=== PATIENT | male | born 1955 | race Caucasian/White ===

== ENCOUNTER 2018-09-27 05:56 | Outpatient (CLI) | payer OTHER ==
[~2018-09-27] VITALS: Ht 180.3 cm; Wt 88.6 kg
--- NOTE | ~2018-09-27 | HEMODYNAMI ---
PATIENT:MILAGRO SCHUMACHER MEDICAL RECORD: [id number] : 57 LOCATION:[facility] ADMISSION DATE: 09/27/18 Generatedon:09/27/20188:34 Patient name: MILAGRO SCHUMACHER Patient #: [id number] SSN: : 1955 Date of study: 09/27/2018 Page: Of Hemodynamic Procedure Report Patient Data Patient Demographics Procedure consent was obtained First Name: MILAGRO Gender: Male Last Name: ENDY : 1955 [facility] Initial: UMESH Age: 63 year(s) Patient #: [id number] Race: Additional ID: [id number] Contact details [address]: [address] [place] [address] State: [place] City: [place] Zip code: [address] Past Medical History Allergies: No known allergies Admission Admission Data Admission Date: 09/27/2018 Admission Time: 5:56 Admit Source: Other Height (in.): 69 BSA: 2.09 (m2) Height (cm.): 175.26 BMI: 30.27 (kg/m2) Weight (lbs.): 205 Weight (kg.): 92.99 Lab Results Lab Result Date: 09/27/2018 Lab Result Time: 0:00 Biochemistry Name Units Result Min Max BUN mg/dl 19 --(----)*- 7 18 Creatinine mg/dl 1.2 --(---*)-- 0.6 1.3 CBC Name Units Result Min Max Hemoglobin g/dl 15.9 --(--*-)-- 13.5 17.5 Procedure Procedure Types Cath Procedure Diagnostic Procedure LHC LHC w/Coronaries w/Grafts Sedation Charges Moderate Sedation up to 15 minutes Procedure Description Procedure Date Procedure Date: 09/27/2018 Procedure Start Time: 8:14 Procedure End Time: 8:29 Procedure Staff Name Function Levi Collado MD Performing Physician Pee Stauffer RT Monitor Ken Danielle RT Scrub Ann Don RN Nurse Procedure Data Cath Procedure Fluoroscopy Diagnostic fluoroscopy Total fluoroscopy Time: 2.7 time: 2.7 min min Diagnostic fluoroscopy Total fluoroscopy dose: 487 dose: 487 mGy mGy Contrast Material Contrast Material Type Amount (ml) Isovue 300 86 Entry Location Entry Primary Successful Side Size Upsize Upsize Entry Closure Succes sful Closure Location (Fr) 1 (Fr) 2 (Fr) Remarks Device Remarks Femoral Right 5 Fr Exoseal artery Estimated blood loss: 5 ml Diagnostic catheters Device Type Used For End Catheter Placement MULTIPACK JL 4.0 5Fr Procedure catheter DIAGNOSTIC IM 5Fr Procedure catheter ([id number]) DIAGNOSTIC AR MOD 5Fr Procedure Catheter ([id number]) MULTIPACK Pigtail 5 Fr Procedure catheter Procedure Complications No complications Procedure Medications Medication Administration Route Dosage Oxygen etCO2 Nasal cannula 2 l/min Heparin Flush Bag added to field 2 bags (1000units/500ml NS) Versed I.V. 2 mg Fentanyl I.V. 100 mcg Versed I.V. 1 mg Fentanyl I.V. 50 mcg Versed I.V. 1 mg Fentanyl I.V. 50 mcg Hemodynamics Rest BSA: 2.09 (m2) HGB: 15.9 (g/dl) O2 Consumption: Estimated: 239.88 (ml/min) O2 Co nsumption indexed: Estimated:114.78 (ml/min/m) Heart Rate: 64 (bpm) Pressure Samples Time Site Value (mmHg) Purpose Heart Use Rate(bpm) 8:25 LV 139/2,20 Snapshot 79 8:26 AO 146/85(113) Pullback 82 8:26 LV 152/17,38 Pullback 82 Gradients Valve Time Site 1 Site 2 Mean SEP/DFP Peak To Heart Use (mmHg) (sec/min) Peak Rate (mmHg) (bpm) Aortic 8:26 LV AO 3 20 6 82 152/17,38 146/85(113) Calculations Valve P-P Mean Valve Index Valve Source Name Gradient Area Flow (cm2) Aortic 6 3 6 3 Snapshots Pre Cath Intra NCS Post Cath Vital Signs Time Heart Resp SPO2 etCO2 NIBP (mmHg) Rhythm Pain Sedation Rate (ipm) (%) (mmHg) Status Level (bpm) 8:03:27 66 17 99 0 168/93(131) NSR 0 (11) 10(A) , No pain 8:07:55 71 19 96 28.8 162/99(144) NSR 0 (11) 10(A) , No pain 8:12:11 71 18 99 0 148/90(130) NSR 0 (11) 10(A) , No pain 8:18:34 80 15 97 10.6 Time NSR 0 (11) 9(A) Exceeded , No pain 8:20:41 82 14 93 37.9 158/100(138) NSR 0 (11) 9(A) , No pain 8:24:55 79 15 97 9.1 147/91(122) NSR 0 (11) 9(A) , No pain 8:29:09 83 15 98 0 149/108(129) NSR 0 (11) 10(A) , No pain Medications Time Medication Route Dose Verified Delivered Reason Notes Effec tiveness by by 8:04:36 Oxygen etCO2 2 Levi Buffie used for Nasal l/min Tobias Don RN procedure cannula 8:04:54 Heparin Flush added 2 Levi Levi used for Bag to bags Tobias Collado MD procedure (1000units/500ml field NS) 8:06:29 Versed I.V. 2 mg Levi Buffie for Tobias Don RN sedation 8:06:35 Fentanyl I.V. 100 Levi Buffie for mcg Tobias Don RN sedation 8:12:36 Versed I.V. 1 mg Levi Buffie for Tobias Don RN sedation 8:12:41 Fentanyl I.V. 50 Levi Buffie for mcg Tobias Don RN sedation 8:25:49 Versed I.V. 1 mg Levi Buffie for Tobias Don RN sedation 8:25:54 Fentanyl I.V. 50 Levi Buffie for mcg Tobias Don RN sedation Procedure Log Time Note 7:41:18 Informed consent obtained and on chart 7:41:22 Admit Source: Other 7:42:22 Diagnostic Cath status Elective 7:42:49 Ken REYNOSO(R) sent for patient. Start room use. 7:46:18 Patient received from Pre/Post Procedure Room to CCL 1 Alert and oriented. Tansferred to table in Supine position. 7:46:19 Warm blankets applied, and bridger hugger turned on for patient comfort. 7:46:22 Correct patient and procedure confirmed by team. 7:46:23 ECG and BP/O2 sat monitors applied to patient. 7:47:34 H&P Date Dictated: 09/24/2018 Within 30 days and on chart., H&P Addendum completed by physician on day of procedure. (MUST COMPLETE FOR ALL OUTPATIENTS). 7:52:25 Pre-procedure instructions explained to patient. 7:52:26 Pre-op teaching completed and patient verbalized understanding. 7:52:29 Family in waiting room. 7:52:31 Patient NPO since Midnight. 7:52:36 Patient allergic to No allergy information 7:52:51 Patient allergic to No known allergies 7:53:02 Is patient on blood thinner?No 7:53:05 Patient diabetic? No. 7:53:08 Snore? Yes 7:53:09 Sleep apnea? No 7:53:11 Deviated septum? Yes 7:53:18 Opens mouth fully? Yes 7:53:19 Sticks out tongue? Yes 7:53:21 Airway obstruction? No ? 7:53:23 Dentures? No ? 7:53:31 Pre procedure: right dorsailis pedis pulse 2+ Normal; easily identifiable; not easily obliterated 7:54:39 IV patent on arrival in left antecubital with 0.9% NaCl at KVO. 7:55:06 Lab Result : BUN 19 mg/dl 7:55:06 Lab Result : Hemoglobin 15.9 g/dl 7:55:06 Lab Result : Creatinine 1.2 mg/dl 7:55:18 Lab results completed and on chart. 7:55:22 Right groin area was prepped with chlora-prep and draped in sterile fashion 7:55:23 Alarms reviewed by R. N. 7:55:23 Sharps counted by scrub and verified by R.N. 7:55:30 Use device set Femoral Dx 7:55:32 ACIST Syringe (61636) opened to sterile field. 7:55:45 Bag Decanter () opened to sterile field. 7:55:46 ACIST Hand Control (17864) opened to sterile field. 7:55:47 ACIST Manifold (84341) opened to sterile field. 7:55:48 Tegaderm 4 x 4 (1626W) opened to sterile field. 7:55:50 Medline Cath Pack ([id number]) opened to sterile field. 7:55:51 DIAGNOSTIC WIRE .035 260cm J wire (070937) opened to sterile field. 7:55:52 DIAGNOSTIC Multipack 5Fr catheter set ([id number]) opened to sterile field. 7:55:53 SHEATH 5FR Woodland ([id number]) opened to sterile field. 7:56:31 Patient Height : 69 inches 7:56:34 Patient Weight : 205 lbs 7:58:40 --------ALL STOP TIME OUT------ 7:58:41 Final Timeout: patient, procedure, and site verified with staff and physician. All members of the team are in agreement. 7:58:43 Right groin site verified by team. 7:58:51 Physical assessment completed. ASA score P 2 - A patient with mild systemic disease as per Levi Collado MD. 7:58:57 Sedation plan: IV Moderate Sedation Medication:Versed, Fentanyl 8:02:13 Vital chart was started 8:02:14 Baseline sample Acquired. 8:02:17 Rhythm: sinus rhythm 8:02:18 Full Disclosure recording started 8:04:36 Oxygen 2 l/min etCO2 Nasal cannula was administered by Ann Don RN; used for procedure; 8:04:54 Heparin Flush Bag (1000units/500ml NS) 2 bags added to field was administered by Levi Collado MD; used for procedure; 8:06:29 Versed 2 mg I.V. was administered by Ann Don RN; for sedation; 8:06:35 Fentanyl 100 mcg I.V. was administered by Ann Don RN; for sedation; 8:09:04 Zero performed for pressure channel P1 8:12:36 Versed 1 mg I.V. was administered by Ann Don RN; for sedation; 8:12:41 Fentanyl 50 mcg I.V. was administered by Ann Don RN; for sedation; 8:14:37 Procedure started. 8:14:40 Local anesthetic to right femoral artery with Lidocaine 2% by Levi Collado MD.INITIAL ACCESS ONLY 8:16:30 A 5 Fr sheath was inserted into the Right Femoral artery 8:17:02 A MULTIPACK JL 4.0 5Fr catheter was advanced over the wire and used for Procedure. 8:18:18 LCA angiography performed. 8:19:16 Catheter exchanged over wire. 8:19:20 A DIAGNOSTIC IM 5Fr catheter ([id number]) was advanced over the wire and used for Procedure. 8:20:19 HERRERA to LAD angiography performed. 8:22:00 Catheter exchanged over wire. 8:22:08 A DIAGNOSTIC AR MOD 5Fr Catheter ([id number]) was advanced over the wire and used for Procedure. 8:23:08 RCA angiography performed. 8:24:00 SVG to Diag occluded. 8:24:02 SVG to Circ occluded. 8:24:36 Catheter exchanged over wire. 8:24:56 A MULTIPACK Pigtail 5 Fr catheter was advanced over the wire and used for Procedure. 8:25:46 LV gram done using SYLVESTER 8::49 Versed 1 mg I.V. was administered by Ann Don RN; for sedation; 8::49 Injector settings: Ml/sec: 10, Volume: 20, 8:25:50 LV hemodynamics recorded. 8:25:54 Fentanyl 50 mcg I.V. was administered by Ann Don RN; for sedation; 8:25:59 EF : 55 % 8:27:09 Catheter removed. 8:27:10 EXOSEAL 5Fr (EX500) opened to sterile field. 8:27:25 Sheath removed intact; hemostasis achieved with Exoseal to the Right Femoral artery. 8:27:28 Procedure ended.(Physican Out) 8:27:37 Fluoroscopy time 02.70 minutes. 8:27:40 Fluoroscopy dose: 487 mGy 8:27:40 Flurop Dose total: 487 8:27:43 Contrast amount:Isovue 300 86ml. 8:27:45 Sharps counted by scrub and verified by R.N. 8:27:45 Insertion/operative site no bleeding no hematoma. 8:27:48 Post-op/insertion site Right Femoral artery dressed using a 4 x 4 and Tegaderm. 8:27:51 Post right femoral artery:stable, soft, clean and dry 8:27:53 Post Procedure Pulses reassessed and unchanged 8:28:03 Post-procedure physical assessment completed. ASA score P 2 - A patient with mild systemic disease as per Levi Collado MD. 8:28:06 Post procedure rhythm: unchanged. 8:28:09 Estimated blood loss: 5 ml 8:28:11 Post procedure instruction explained to patient.Patient verbalizes understanding. 8:28:11 Patient needs reinforcement of post procedure teaching. 8:28:31 Procedure type changed to Cath procedure, Diagnostic procedure, LHC, LHC w/Coronaries w/Grafts, Sedation Charges, Moderate Sedation up to 15 minutes 8:28:50 Procedure and supply charges have been captured, reviewed, submitted and are correct. 8:28:52 Procedure Complication : No complications 8:28:54 Vital chart was stopped 8:28:54 See physician's report for complete and final results. 8:28:56 Report given to Pre/Post Procedure Room. 8:28:59 Patient transfered to Pre/Post Procedure Room with Stretcher. 8:29:01 Procedure ended. 8:29:01 Full Disclosure recording stopped 8:29:05 End room use (Document Last) Device Usage Item Name Manufacture Quantity Catalog Hospital Part Current Minimal L ot# / Number Charge Number Stock Stock Serial# Code ACIST Acist 1 05251 632454 766586 912687 20 Syringe Medical (27355) Systems Inc Bag Microtek 1 756919 37478 120228 5 Decanter Medical Inc. () ACIST Hand Acist 1 37885 890622 464539 562777 5 Control Medical (90330) Systems Inc ACIST Acist 1 04359 405141 759220 831297 5 Manifold Medical (40202) Systems Inc Tegaderm 4 3M 1 1626W 775075 060241 696551 5 x 4 (1626W) Medline Medline 1 [id number] 483476 93054 042576 5 Cath Pack ([id number]) DIAGNOSTIC St Edwin 1 978978 640204 767727 486142 30 WIRE .035 260cm J wire (869610) DIAGNOSTIC Cardinal 1 [id number] 568672 91281 320520 30 Multipack Health 5Fr catheter set (KB8422) SHEATH 5FR Terumo 1 [id number] 352594 658738 288941 5 [place]land (GVR066) MULTIPACK Cardinal 1 594249 5 JL 4.0 5Fr Health catheter DIAGNOSTIC Cardinal 1 [id number] 803027 257843 508526 5 IM 5Fr Health catheter ([id number]) DIAGNOSTIC Cardinal 1 [id number] 200012 850854 933393 15 AR MOD 5Fr Health Catheter (235239P) MULTIPACK Cardinal 1 940087 5 Pigtail 5 Health Fr catheter EXOSEAL 5Fr Cardinal 1 EX500 459345 391352 216946 10 (EX500) Health Signature Audit Roselle Stage Time Signature Unsigned Intra-Procedure 09/27/2018 Pee Stauffer 8:34:03 AM RT(R) Signatures Monitor : Pee Stauffer RT Signature : Date : Time : [address] [place] [address]
[~2018-09-27 05:56] MED LIST: ADVIL200 MG PO; BAYER CHEWABLE81 MG PO; BETAPACE 80 MG80 MG PO; COLACE100 MG PO; HEMOCYTE PLUS C1 CAP PO; HYDROCODONE-APA1 TAB PO; ISOSORBIDE MONO30 M1 PO; LEVAQUIN750 MG PO; MEDROL DOSE PACK4 MG PO; NITROGLYCERIN6.5 MG; NITROSTAT0.4 MG SL; OMEPRAZOLE20 M1 PO; PRILOSEC20 MG PO; PRINZIDE 20/12.1 TA1 PO; SENOKOT-S TABLE1 TAB PO; TESSALON PERLE100 MG PO; TOPROL XL25 MG PO; XARELTO15 MG PO
[2018-09-27] MEDS ORDERED: PRAVASTATIN SOD10 MG PO (06:22)
[2018-09-27 06:29] VITALS: BP 168/93; Ht 180.3 cm; Wt 88.6 kg
[2018-09-27 06:52] LABS: CALCIUM 9.3 mg/dL (8.5-10.1); CARBON DIOXIDE 28.1 mmol/L (21.0-32.0); CREATININE - SERUM 1.2 mg/dL (0.6-1.3); POTASSIUM - SERUM 4.1 mmol/L (3.5-5.1)
[2018-09-27 07:45] LABS: HEMATOCRIT 45.7 % (42.0-54.0); HEMOGLOBIN 15.9 g/dL (13.5-17.5); LYMPHOCYTES 26.8 % (15-50); MCH 31.9 pg (26.0-34.0); MCHC 34.8 g/dL (31.0-37.0); MCV 91.8 fL (80.0-100.0); MEAN PLATELET VOLUME 9.6 fL (7.4-10.4); NEUTROPHILS 62.7 % (40-80); PLATELET COUNT 180 10x3/uL (130-400); RBC 4.98 10x6/uL (4.20-6.10); RDW 12.9 % (11.5-14.5); WBC 5.4 10x3/uL (4.8-10.8)
--- NOTE | 2018-09-27 09:00 | NUR ---
2L NC, NO RESP DISTRESS. RIGHT GROIN 5F EXOSEAL CDI, NO BLEEDING OR HEMATOMA NOTED. NO C/O PAIN OR NAUSEA. VSS. FAMILY AT BEDSIDE, CALL LIGHT WITHIN REACH.
--- NOTE | 2018-09-27 09:30 | NUR ---
RIGHT GROIN 5F EXOSEAL CDI, NO BLEEDING OR HEMATOMA NOTED. NO C/O PAIN OR NAUSEA. DENIES ANY NEEDS. VSS. WILL CONTINUE TO MONITOR.
--- NOTE | 2018-09-27 09:50 | NUR ---
HOB ELEVATED 30 DEGREES. SIPPING ON DRINK AND EATING SANDWICH WITH NO C/O NAUSEA. VOIDED 200CC INTO URINAL. VSS. WILL CONTINUE TO MONITOR CLOSELY.
--- NOTE | 2018-09-27 10:30 | NUR ---
LEFT PIV D/C'D WITH CATHETER INTACT, BAND AID TO SITE. UP TO BEDSIDE TO GET DRESSED.
--- NOTE | 2018-09-27 10:40 | NUR ---
DISCHARGE INSTRUCTIONS GIVEN, VERBALIZED UNDERSTANDING.
--- NOTE | 2018-09-27 10:50 | NUR ---
TAKEN OUT VIA WHEELCHAIR BY CATH BASIN CLEANER. LEFT FACILITY WITH FAMILY AND ALL PERSONAL BELONGINGS.
== END 2018-09-27 10:50 | disposition home or self-care (01) ==
LOC: D.CATH 05:56
PROVIDERS: Internal Medicine Cardiovascular Disease
DX: I25.110 Atherosclerotic heart disease of native coronary artery with unstable angina pectoris (principal); I25.82 Chronic total occlusion of coronary artery; T82.858A Stenosis of other vascular prosthetic devices, implants and grafts, initial encounter; Y83.8 Other surgical procedures as the cause of abnormal reaction of the patient, or of later complication, without mention of misadventure at the time of the procedure; I10 Essential (primary) hypertension

== ENCOUNTER → 2019-01-21 08:12 | Outpatient (CLI) | payer OTHER ==
[2018-09-27 06:29] VITALS: BMI 27.2
[~2019-01-21 08:12] MED LIST changes: +PRAVASTATIN SOD10 MG PO
== END | disposition home or self-care (01) ==
LOC: D.US 08:12
PROVIDERS: ATTEND Internal Medicine Cardiovascular Disease
DX: I65.23 Occlusion and stenosis of bilateral carotid arteries (principal)

== ENCOUNTER → 2020-03-16 14:19 | Outpatient (CLI) | payer OTHER ==
[2018-09-27 06:29] VITALS: BMI 27.2
== END | disposition home or self-care (01) ==
LOC: D.US 03-10 09:30
PROVIDERS: ATTEND Internal Medicine Cardiovascular Disease
DX: I65.23 Occlusion and stenosis of bilateral carotid arteries (principal)

== ENCOUNTER → 2020-05-27 13:43 | Outpatient (CLI) | payer OTHER ==
[2018-09-27 06:29] VITALS: BMI 27.2
== END | disposition home or self-care (01) ==
LOC: D.HCCECHO 13:43
PROVIDERS: ATTEND Internal Medicine Cardiovascular Disease
DX: I25.10 Atherosclerotic heart disease of native coronary artery without angina pectoris (principal)

== ENCOUNTER → 2020-06-10 07:57 | Outpatient (CLI) | payer OTHER ==
[2018-09-27 06:29] VITALS: BMI 27.2
== END | disposition home or self-care (01) ==
LOC: D.HCCARDIO 07:57
PROVIDERS: ATTEND Internal Medicine Cardiovascular Disease
DX: I25.119 Atherosclerotic heart disease of native coronary artery with unspecified angina pectoris (principal)

== ENCOUNTER 2020-12-06 11:44 | Observation (INO) | payer OTHER ==
[~2020-12-06] VITALS: Ht 180.3 cm; Wt 93.0 kg
--- NOTE | 2020-12-06 12:08 | NUR ---
PATIENT TAKEN TO CT
[2020-12-06 12:22] LABS: BASOPHILS 0.3 % (0-2); EOSINOPHILS 1.3 % (0-7); HEMATOCRIT 45.3 % (42.0-54.0); HEMOGLOBIN 15.3 g/dL (13.5-17.5); IMMATURE GRANULOCYTES 0.1 % (0-5); LYMPHOCYTE ABS# 0.99 10x3/uL (1.32-3.57); LYMPHOCYTES 12.7 % (15-50); MCH 31.8 pg (26.0-34.0); MCHC 33.8 g/dL (31.0-37.0); MCV 94.2 fL (80.0-100.0); MEAN PLATELET VOLUME 9.2 fL (7.4-10.4); MONOCYTES 5.9 % (2-11); NEUTROPHIL ABS# 6.22 10x3/uL (1.78-5.38); NEUTROPHILS 79.7 % (40-80); PLATELET COUNT 211 10x3/uL (130-400); RBC 4.81 10x6/uL (4.20-6.10); WBC 7.8 10x3/uL (4.8-10.8)
[2020-12-06 12:26] LABS: INR 1.11 (0.85-1.17); PROTIME 13.2 SECONDS (11.6-15.0)
[2020-12-06 12:44] LABS: CALC OSMOLALITY 278 mosm/kg (275-300); CALCIUM 9.2 mg/dL (8.5-10.1); CARBON DIOXIDE 25.1 mmol/L (21.0-32.0); CHLORIDE - SERUM 106 mmol/L (98-107); CREATININE - SERUM 1.3 mg/dL (0.6-1.3); GLUCOSE 118 mg/dL (74-106); POTASSIUM - SERUM 4.2 mmol/L (3.5-5.1); SODIUM 138 mmol/L (136-145); UREA NITROGEN 18 mg/dL (7-18); eGFR NON AFRICAN AMERICAN 59 mL/min (90-120)
[2020-12-06 13:00] LABS: ALKALINE PHOSPHATASE 79 U/L (30-120); ALT (SGPT) 23 U/L (10-68); CKMB 0.1 U/L (0.0-3.6); CREATINE KINASE 24 UL (21-232); MAGNESIUM - SERUM 2.3 mg/dL (1.8-2.4); THYROID STIMULATING HORMONE 0.52 uIU/mL (0.36-3.74); TROPONIN-I < 0.017 ng/mL (0.000-0.060)
--- NOTE | 2020-12-06 13:35 | NUR ---
PT BACK FROM CT
[2020-12-06 14:59] LABS: CHOL - HDL RATIO 3.8 ratio (2.3-4.9); LDL-HDL RATIO 2.6 ratio (1.5-3.5)
[2020-12-06 15:37] LABS: CREATINE KINASE 22 UL (21-232)
[2020-12-06 15:42] LABS: TROPONIN-I < 0.017 ng/mL (0.000-0.060)
--- NOTE | 2020-12-06 16:30 | NUR ---
ARRIVES TO UNIT PER STRETCHER, IV INFUSING
[2020-12-06] MEDS ORDERED: CARDIZEM CD240 MG PO (16:46)
[2020-12-06 16:55] VITALS: BMI 28.6
[2020-12-06 17:03] VITALS: BP 132/79
--- NOTE | 2020-12-06 17:32 | NUR ---
PT STATES THAT HE IS STILL HAVING TROUBLE WITH HIS R EYE, UNABLE TO FOCUS, NOT ALWAYS MOVING IN THE DIRECTION THAT IT SHOULD, SOME NUMBNESS TO L FINGERS BUT BETTER THAN IT WAS, URINAL PROVIDED AND PT TO REMAIN IN BED, DR BESS HERE TO SEE PT
--- NOTE | 2020-12-06 18:50 | NUR ---
CALL PLACED TO DR WELSH, AWAITING RETURN CALL
--- NOTE | 2020-12-06 19:39 | NUR ---
DR SU AWARE OF CONSULT
[2020-12-06 20:00] VITALS: BP 120/74
[2020-12-06 21:16] LABS: CREATINE KINASE 22 UL (21-232); TROPONIN-I < 0.017 ng/mL (0.000-0.060)
[2020-12-07] VITALS: BP 130/76
[2020-12-07 02:27] LABS: BASOPHILS 0.3 % (0-2); EOSINOPHILS 2.7 % (0-7); HEMOGLOBIN 13.8 g/dL (13.5-17.5); IMMATURE GRANULOCYTES 0.2 % (0-5); LYMPHOCYTE ABS# 1.48 10x3/uL (1.32-3.57); LYMPHOCYTES 23.3 % (15-50); MCH 31.7 pg (26.0-34.0); MCHC 33.7 g/dL (31.0-37.0); MCV 94.3 fL (80.0-100.0); MEAN PLATELET VOLUME 9.1 fL (7.4-10.4); NEUTROPHIL ABS# 4.09 10x3/uL (1.78-5.38); NEUTROPHILS 64.5 % (40-80); RBC 4.35 10x6/uL (4.20-6.10); WBC 6.3 10x3/uL (4.8-10.8)
[2020-12-07 02:28] LABS: PLATELET COUNT 167 10x3/uL (130-400)
[2020-12-07 02:44] LABS: CREATINE KINASE 21 UL (21-232); TROPONIN-I < 0.017 ng/mL (0.000-0.060)
--- NOTE | 2020-12-07 03:00 | NUR ---
I have reviewed this patient and I concur with the Shift Assessment completed by the Licensed Practical Nurse today this shift.
--- NOTE | 2020-12-07 03:00 | NUR ---
I have reviewed this patient and I concur with the Shift Assessment completed by the Licensed Practical Nurse today this shift.
[2020-12-07 03:27] LABS: ALBUMIN 3.2 g/dL (3.4-5.0); ANION GAP 11.4 mmol/L (8-16); BILIRUBIN - TOTAL 0.28 mg/dL (0.2-1.3); CALCIUM 8.3 mg/dL (8.5-10.1); CARBON DIOXIDE 24.7 mmol/L (21.0-32.0); CREATININE - SERUM 1.1 mg/dL (0.6-1.3); MAGNESIUM - SERUM 2.1 mg/dL (1.8-2.4); PHOSPHOROUS 3.4 mg/dL (2.5-4.9); POTASSIUM - SERUM 4.1 mmol/L (3.5-5.1); PROTEIN - SERUM 5.4 g/dL (6.4-8.2); THYROID STIMULATING HORMONE 0.35 uIU/mL (0.36-3.74)
[2020-12-07 04:00] VITALS: BP 121/77
[2020-12-07 09:06] VITALS: BP 140/85
--- NOTE | 2020-12-07 09:37 | NUR ---
ASSESSMENT PER FLOW SHEET. PATIENT IS WITHOUT DISTRESS. STATES VISION BETTER TODAY. DENIES NEEDS. AT BEDSIDE.CALL LIGHT IN REACH.
[2020-12-07 12:52] VITALS: BP 133/77
--- NOTE | 2020-12-07 12:58 | NUR ---
STILL WITHOUT NEEDS. AT BEDSIDE
[2020-12-07 13:49] LABS: ERYTHROCYTE SEDIMENTATION RATE 2 mm/hr (0-20)
[2020-12-07 14:55] VITALS: Ht 180.3 cm; Wt 93.0 kg
--- NOTE | 2020-12-07 15:08 | NUR ---
AMBULATED WITH ASSIST IN HALLS. GAIT STEADY WITH ASSIST. STATES STILL NOT 100 PERCENT,BUT STEADINESS BETTER. WITHOUT ANY VISION PROBLEMS AT THIS TIME.
[2020-12-07] MEDS ORDERED: PRAVASTATIN SOD10 MG PO (15:32)
[2020-12-07] MEDS ORDERED: ELIQUIS5 MG PO (15:32)
[2020-12-07 16:16] VITALS: BP 135/76
--- NOTE | 2020-12-07 17:38 | NUR ---
DISCHARGE INSTRUCTIONS,STATES UNDERSTANDING. IV DCD WITH CATH TIP INTACT.
--- NOTE | 2020-12-07 17:47 | NUR ---
LEFT UNIT VIA WHEELCHAIR FOR TRANSPORT HOME
[2020-12-08 09:13] LABS: ANA REFLEX - DIRECT Negative (Negative)
== END 2020-12-07 17:48 | disposition home or self-care (01) ==
LOC: D.ER 11:44 → D.MS 15:37 → OBSVTIME 16:43 → D.MS 12-07 17:48
PROVIDERS: Family Medicine; ADMIT Family Medicine; ATTEND Family Medicine
DX: G45.0 Vertebro-basilar artery syndrome (principal); H53.9 Unspecified visual disturbance; R20.0 Anesthesia of skin; I48.0 Paroxysmal atrial fibrillation; I10 Essential (primary) hypertension; I25.10 Atherosclerotic heart disease of native coronary artery without angina pectoris; R11.2 Nausea with vomiting, unspecified; E86.0 Dehydration; H53.2 Diplopia; E78.5 Hyperlipidemia, unspecified; K21.9 Gastro-esophageal reflux disease without esophagitis; N40.0 Benign prostatic hyperplasia without lower urinary tract symptoms; R27.0 Ataxia, unspecified; H55.00 Unspecified nystagmus